=== PATIENT | male | born 1980 | race Caucasian/White ===

== ENCOUNTER 2019-01-13 22:30 | Emergency (ER) | payer OTHER ==
[~2019-01-13] VITALS: Ht 190.5 cm; Wt 167.8 kg
[2019-01-13] MEDS ORDERED: ATACAND16 MG (22:53)
[2019-01-14] MEDS ORDERED: LEVAQUIN500 MG PO (04:18)
== END 2019-01-14 04:23 | disposition home or self-care (01) ==
LOC: ER 22:30
DX: G89.18 Other acute postprocedural pain (principal); Z98.52 Vasectomy status

== ENCOUNTER 2020-07-14 05:45 | Day surgery (SDC) | payer OTHER ==
[~2020-07-14 05:45] MED LIST: ATACAND16 MG; LEVAQUIN500 MG PO
[2020-07-14] MEDS ORDERED: NEXIUM 24HR20 MG PO (08:04)
== END 2020-07-14 09:30 | disposition home or self-care (01) ==
LOC: AMB-ENDOS 05:45
PROVIDERS: ATTEND Surgery
DX: D13.1 Benign neoplasm of stomach (principal); K44.9 Diaphragmatic hernia without obstruction or gangrene; Z20.828 Contact with and (suspected) exposure to other viral communicable diseases